=== PATIENT | male | born 1950 | race Two or more races ===

== ENCOUNTER 2022-09-12 08:51 | Outpatient (CLI) | payer OTHER ==
[~2022-09-12 08:51] MED LIST: CIPRO500 MG PO; PYRIDIUM DS200 MG PO; ULTRAM50 MG PO; flomax PO
== END 2022-09-12 08:55 | disposition home or self-care (01) ==
LOC: LAB 08:51
PROVIDERS: ATTEND Orthopaedic Surgery
DX: Z76.89 Persons encountering health services in other specified circumstances (principal); M25.511 Pain in right shoulder; M25.512 Pain in left shoulder; I10 Essential (primary) hypertension; I49.9 Cardiac arrhythmia, unspecified; D64.9 Anemia, unspecified; E88.9 Metabolic disorder, unspecified; D68.8 Other specified coagulation defects; N39.0 Urinary tract infection, site not specified; A49.02 Methicillin resistant Staphylococcus aureus infection, unspecified site

== ENCOUNTER 2023-11-09 08:59 | Outpatient (CLI) | payer OTHER ==
[2023-11-09 10:12] LABS: HEMATOCRIT 45.9 % (39.0-48.0); MEAN CELL VOLUME 87.3 fL (80.0-100.00); MEAN CORPUSCULAR HEMOGLOBIN 28.5 pg (27.00-32.0); MEAN CORPUSCULAR HGB CONC 32.6 g/dl (32.0-36.0); PLATELET COUNT 224 K/uL (150-450); RED BLOOD COUNT 5.26 M/uL (4.00-6.00); RED CELL DISTRIBUTION WIDTH 14.1 % (11.5-14.5)
[2023-11-09 10:18] LABS: PH,URINE 5.5 (5.0-8.0); URINE APPEARANCE Clear; URINE BILIRRUBIN Negative (NEGATIVE); URINE BLOOD Negative; URINE COLOR Yellow; URINE GLUCOSE Negative (NEGATIVE); URINE LEUKOCYTE Negative; URINE NITRATE Negative; URINE PROTEIN Negative (NEGATIVE)
[2023-11-09 10:22] LABS: URINE BACTERIA 15.1 uL (0.0-1933); URINE EPITHELIAL CELLS 4.3 uL (0.0-38.8); URINE WBC 1.8 uL (0.0-23.2)
[2023-11-09 10:39] LABS: ALBUMIN 3.5 gm/dL (3.4-5.0); CALCIUM 9.4 mg/dL (8.5-10.1); CREATININE SERUM 1.02 mg/dL (0.70-1.30); GFR 71.99; GLOBULINA 3.7 G/DL (2.4-3.5); POTASSIUM 4.19 mEq/L (3.5-5.1); TOTAL PROTEIN 7.2 gm/dL (6.4-8.2)
[2023-11-09 11:35] LABS: COL EPI 90 SECONDS (82-175)
[2023-11-09 11:39] LABS: PARTIAL THROMBOPLASTIN TIME 27.1 SECONDS (22.0-34.0); PROTHROMBIN TIME 10.5 SECONDS (9.0-11.5)
== END 2023-11-09 09:00 | disposition home or self-care (01) ==
LOC: RAD 08:59
PROVIDERS: ATTEND Orthopaedic Surgery
DX: D64.9 Anemia, unspecified (principal); E88.89 Other specified metabolic disorders; D68.8 Other specified coagulation defects; N39.0 Urinary tract infection, site not specified; Z22.322 Carrier or suspected carrier of Methicillin resistant Staphylococcus aureus; I10 Essential (primary) hypertension; Z76.89 Persons encountering health services in other specified circumstances; M75.22 Bicipital tendinitis, left shoulder; M75.122 Complete rotator cuff tear or rupture of left shoulder, not specified as traumatic

== ENCOUNTER 2025-02-25 09:48 | Emergency (ER) | payer OTHER ==
[~2025-02-25] VITALS: Ht 175.3 cm; Wt 83.5 kg
[2025-02-25] MEDS ORDERED: ELIQUIS2.5 MG (10:53)
[2025-02-25] MEDS ORDERED: TOPROL XL25 M1 (10:55)
[2025-02-25] MEDS ORDERED: LIPITOR20 MG (10:55)
== END 2025-02-25 16:13 | disposition home or self-care (01) ==
LOC: ER 09:57
DX: K40.90 Unilateral inguinal hernia, without obstruction or gangrene, not specified as recurrent (principal); I10 Essential (primary) hypertension

== ENCOUNTER → 2025-03-14 | Emergency (ER) | payer OTHER ==
[~2025-03-14] VITALS: Ht 175.3 cm; Wt 83.5 kg
[~2025-03-14] MED LIST changes: +ELIQUIS2.5 MG; +KETOROLAC TROMETHAMINE 60 MG VIAL IM ONE; +LIPITOR20 MG; +TOPROL XL25 M1
[2025-03-14 16:21] VITALS: BP 98/68; O2SAT 98
== END | disposition left against medical advice (07) ==
LOC: ER 15:23
DX: K40.90 Unilateral inguinal hernia, without obstruction or gangrene, not specified as recurrent (principal); I10 Essential (primary) hypertension; K57.30 Diverticulosis of large intestine without perforation or abscess without bleeding

== ENCOUNTER 2025-04-05 05:23 | Day surgery (SDC) | payer OTHER ==
[2025-03-27 11:58] VITALS: BP 120/78
[2025-03-27 12:09] LABS: URINE APPEARANCE Clear; URINE BILIRRUBIN Negative (NEGATIVE); URINE BLOOD Negative; URINE COLOR Yellow; URINE KETONE Trace (NEGATIVE); URINE LEUKOCYTE Negative; URINE NITRATE Negative; URINE PROTEIN Trace (NEGATIVE); URINE UROBILINOGEN 0.2 E.U./dl
[2025-03-27 12:16] LABS: BASO % 0.3 % (0.1-1.2); EOS # 0.06 (0.04-0.54); EOS % 0.8 % (0.7-7.0); LYMPH # 1.86 (1.18-3.74); LYMPH % 25.3 % (19.3-53.1); MEAN PLATELET VOLUME 10.40 fl (9.4-12.4); MONO # 0.51 (0.24-0.82); MONO % 6.9 % (4.7-12.5); NEUT # 4.89 (1.56-6.13); NEUT % 66.4 % (34.0-71.1); RED CELL DISTRIBUTION WIDTH 13.6 % (11.6-14.4)
[2025-03-27 12:36] LABS: INR 1.06
[2025-03-27 12:47] LABS: URINE GLUCOSE >=1000 MG/DL (NEGATIVE)
[2025-03-27 12:49] LABS: URINE BACTERIA SOME; URINE EPITHELIAL CELLS 0-4 /HPF; URINE MUCUS SCANT; URINE RBC 0-3 /HPF; URINE WBC 0-2 /hpf
[2025-03-27 13:19] LABS: ALT/SGPT 34.0 U/L (12-78); AST/SGOT 15.0 U/L (15-37); BILIRUBIN TOTAL 1.86 mg/dL (0.3-1.2); BUN CREA RATIO 15.0 (7.0-25.0); CREATININE SERUM 0.98 mg/dL (0.70-1.30); GFR 75.18; GLOBULINA 3.6 G/DL (2.4-3.5); GLUCOSE FASTING 107.0 mg/dL (65-100); OSMOLALITY SERUM 286.0 MOSM/KG (275-295)
[~2025-04-05] VITALS: Ht 175.3 cm; Wt 83.5 kg
[~2025-04-05 05:23] MED LIST changes: +ALDACTONE25 MG PO; -ELIQUIS2.5 MG; +ELIQUIS2.5 MG PO; +JARDIANCE10 MG PO; -KETOROLAC TROMETHAMINE 60 MG VIAL IM ONE
[2025-04-05] MEDS ORDERED: CEFAZOLIN SODIUM 1,000 MG VIAL IV SCH (09:00)
[2025-04-05] MEDS ORDERED: SUGAMMADEX SODIUM 200 MG/2 ML VIAL IV SCH (09:45)
[2025-04-05] MEDS ORDERED: MORPHINE SULFATE 4 MG/ML VIAL IV ONE ×2 (10:00→10:30)
== END 2025-04-05 11:45 | disposition home or self-care (01) ==
LOC: CIR.AMB 05:23
PROVIDERS: ATTEND Surgery
DX: K40.20 Bilateral inguinal hernia, without obstruction or gangrene, not specified as recurrent (principal)
CPT/HCPCS: 49650; C1781